=== PATIENT | female | born 1995 | race Caucasian/White ===

== ENCOUNTER 2017-01-03 12:51 | Emergency (ER) | payer OTHER ==
[2017-01-03 13:56] LABS: UA SPECIFIC GRAVITY 1.025 (1.005-1.035); microscopic required? YES; urine erythrocyte 2+ (NEGATIVE)
[2017-01-03 14:58] VITALS: BP 125/88
== END 2017-01-03 14:58 | disposition home or self-care (01) ==
LOC: ED 12:51
PROVIDERS: Specialist
DX: N39.0 Urinary tract infection, site not specified (principal)
CPT/HCPCS: 87491; 87591; J0696